=== PATIENT | male | born 1970 | race Hispanic/Latino ===

== ENCOUNTER → 2019-07-31 | Outpatient (CLI) | payer BC ==
[~2019-07-31] MED LIST: ADDERALL PO; DEXILANT PO; LEVOTHYROXINE75 MCG PO; LEXAPRO20 MG PO; TRICOR145 MG PO; [UNRECOGNIZED DRUG - OTHER] TP
--- NOTE | 2019-07-31 10:40 | Diagnostic Imaging Report ---
EXAMINATION: CHEST 2 VIEWS INDICATION: Pre-operative COMPARISON: None FINDINGS: LINES/TUBES:None LUNGS:The lungs are well-inflated. No focal consolidation or pulmonary edema. PLEURA:No pleural effusion or pneumothorax. MEDIASTINUM:The cardiomediastinal silhouette appears normal in size and shape. BONES/SOFT TISSUES:No acute osseous injury. ABDOMEN:No free air under the diaphragm. IMPRESSION: No focal pneumonia or pulmonary edema. Signed by: Mika Cazares MD on 07/31/2019 10:36 AM
== END ==
LOC: RAD 09:33
PROVIDERS: ATTEND Orthopaedic Surgery Sports Medicine
DX: Z01.818 Encounter for other preprocedural examination (principal)
CPT/HCPCS: 71046; 93005